=== PATIENT | male | born 1990 | race Caucasian/White ===

== ENCOUNTER 2019-12-30 11:39 | Emergency (ER) | payer BC, SELFPAY ==
[2019-12-30 11:58] VITALS: BP 135/80; PULSE 58; RESP 18; TEMP 36.8; O2SAT 100
--- NOTE | 2019-12-30 12:11 | ED.MALEGU ---
HPI - Male Genitourinary General Chief complaint: Urogenital-Male Stated complaint: Urogenital-male Time Seen by Provider: 12/30/19 12:14 Source: patient and RN notes reviewed Mode of arrival: ambulatory Limitations: no limitations History of Present Illness HPI Narrative: 29-year-old male presents with concern for dysuria, suprapubic pain, 1 episode of diarrhea over the weekend, fever over the weekend. 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 Reports symptoms feel similar. He denies current abdominal pain, fever, malaise. Denies urgency, frequency, flank pain, testicular pain, abnormal penile discharge, STD exposure. MD Complaint: dysuria Related Data Home Medications Medication Instructions Recorded Confirmed hydrocodone-acetaminophen 1 tablet PO Q4H PRN 12/30/19 12/30/19 meloxicam 15 mg PO DAILY 12/30/19 12/30/19 Allergies Allergy/AdvReac Type Severity Reaction Status Date / Time No Known Allergies Allergy Verified 12/30/19 12:19 Review of Systems Review of Systems: Narrative: CONSTITUTIONAL: Denies malaise, chills, sweats, or fever. CARDIOVASCULAR: Denies chest pain, palpitations, or edema. RESPIRATORY: Denies cough or dyspnea. GASTROINTESTINAL: Denies abdominal pain, nausea, vomiting, bloody, or mucous stools. Reports diarrhea over the weekend GENITOURINARY: Reports suprapubic pain, dysuria, dark-colored urine. Denies frequency, urgency, flank pain SKIN: Denies rash or itching. MUSCULOSKELETAL: Denies myalgia. All systems reviewed & are unremarkable except as noted in HPI and below PMFSH Comments At time of signature, agree with nursing past medical, surgical, social and family history. There is no relevant family history pertinent to the presenting complaint Exam Narrative: Exam Narrative: GENERAL: Well-appearing, well-nourished, and in no acute distress. HEAD: Normocephalic EYES: PERRLA, conjunctivae clear ENT: Mucous membranes moist. NECK: Supple. CHEST: No respiratory distress. Clear to auscultation. Speaks in full sentences. HEART: Regular rate and rhythm. ABDOMEN: Soft, nontender, nondistended, normal active bowel sounds, no palpable masses. SKIN: Warm, dry, no rash. NEURO: Alert and oriented x3. PSYCH: Normal mood and affect Course Course Emergency Course: Patient transferred to emergency room versus following up with his doctor. Patient chooses to follow-up with his doctor on Saturday, understands reasons to go the emergency room in the meantime. Patient is stable, nontoxic appearing, no abdominal pain or tenderness. Patient is aware of diagnosis, understands and agrees to treatment plan. Anticipatory guidance given. Patient agrees to follow-up as directed and is aware of reasons to seek care at the emergency department. Portions of this record may have been created with voice recognition software Vital Signs Vital signs: Vital Signs Temperature 98.2 F 12/30/19 11:58 Pulse Rate 58 L 12/30/19 11:58 Respiratory Rate 18 12/30/19 11:58 Blood Pressure 135/80 12/30/19 11:58 Pulse Oximetry 100 12/30/19 11:58 Temperature 98.2 F 12/30/19 11:58 Pulse Rate 58 L 12/30/19 11:58 Respiratory Rate 18 12/30/19 11:58 Blood Pressure 135/80 12/30/19 11:58 Pulse Oximetry 100 12/30/19 11:58 Reviewed. Pt has been instructed to follow up with his primary care provider within the next week regarding his elevated blood pressure today. MDM - Male Genitourinary MDM Narrative Medical decision making narrative: Exam findings and UA show no acute concerns or changes; patient is non-toxic appearing and is in no distress. Patient is appropriate for outpatient treatment and follow-up. Lab Data Labs: Urine Glucose Negative Reference Range: Negative Urine Bilirubin Negative Reference Range: Negative Urine Ketone Negative Reference Range: Negative Urine Spe
== END 2019-12-30 12:43 | disposition home or self-care (01) ==
PROVIDERS: Emergency Provider Nurse Practitioner; PCP Internal Medicine
DX: R31.9 Hematuria, unspecified (principal)
CPT/HCPCS: 81003; 87086; 99203; G0463